=== PATIENT | male | born 1975 | race Caucasian/White ===

== ENCOUNTER 2017-06-15 03:02 | Emergency (ER) | payer SELFPAY ==
[2017-06-15 03:03] VITALS: BP 177/101; PULSE 100; RESP 16; TEMP 98.7; O2SAT 100
[2017-06-15] MEDS ORDERED: PROPARACAINE HCL 0.5% OPHT SOLN 15 ML BTL EACH EYE ONE (03:30)
--- NOTE | 2017-06-15 03:35 | PD ---
HPI Chief Complaint: Eye Problems/Injury Time Seen by Provider: 03:15 Travel History International Travel<30 days: No Contact w/Intl Traveler<30days: No Traveled to known affect area: No History of Present Illness HPI The patient is a 41 year old male who presents to the [facility] emergency department with a history of left eye pain that recurred 4 days ago. The patient reports that yesterday it seemed to be improving and then today again it worsened. He reports that it has been associated with eye redness and tearing. He reports having sensitivity to light. He denies having any changes in his vision. He reports that he did have an injury to his left eye 4-5 months ago. He reports that he was clawed in the left eye by his small dog. He reports that he was not evaluated for this. He reports that it took approximately one month for it to heal. He cannot recall if he's ever had an eye exam previously. He denies following up the primary care physician. He reports that he was last seen for a physical examination approximate 10 years ago. The patient reports that he has been diagnosed with high blood pressure in the past. He reports that he is getting blood pressure medication from a friend. The patient denies having any recent trauma to his eye or known foreign body in his eye. He reports having a headache on the left side of his head associated with this. He denies having any recent fevers cough, congestion , neck pain, chest pain, shortness of breath, abdominal pain, vomiting, diarrhea , urinary symptoms, or neurologic symptoms. PFSH Past Medical History Narrative Medical The patient's past medical history is significant for hypertension. He was started on extra BP medicine from his friend. He started back on them a week ago. He last had a physical 10 years ago. Diminished Hearing: No Hypertension: Yes Tetanus Vaccination: Unknown Past Surgical History Narrative Surgical The patient's past surgical history is significant for a basal cell skin cancer removal off of the center of his chest four years ago. Social History Alcohol Use: Yes (every other weekend) Tobacco Use: Yes (he smokes when he drinks alcohol. ) Substance Use: No Allergies-Medications (Allergen,Severity, Reaction): Coded Allergies: No Known Allergies (Unverified , 06/15/17) Reported Meds & Prescriptions Reported Meds & Active Scripts Active Lortab (Hydrocodone-Acetaminophen) 5-325 Mg Tab 1 Tab PO Q6H PRN Tobramycin Opth Drops 0.3 % Soln 1 Drop LEFT EYE Q4H Narrative Medication Atenolol, lisinopril from a friend Review of Systems General / Constitutional: No: Fever Eyes: Positive: Photophobia, Drainage, Redness, Tearing, No: Visual changes HENT: Positive: Headaches, No: Congestion, Neck Pain Cardiovascular: No: Chest Pain or Discomfort Respiratory: No: Shortness of Breath Gastrointestinal: No: Nausea, Vomiting, Diarrhea, Abdominal Pain Genitourinary: No: Dysuria Musculoskeletal: No: Pain Skin: No Rash Neurologic: Positive: Headache, No: Weakness, Focal Abnormalities, Change in Mentation, Slurred Speech, Sensory Disturbance Psychiatric: No: Depression Endocrine: No: Polydipsia Hematologic/Lymphatic: No: Easy Bruising Physical Exam Narrative General: The patient is a well-developed well-nourished male, uncomfortable appearing on arrival. Head and Neck exam: Head is normocephalic atraumatic. Eyes: EOMI, pupils are equal round and reactive to light. The patient has a funduscopic examination that is unremarkable. No evidence of AV nicking, cotton -wool spots, hemorrhage, retinal detachment. The patient however is noted to have sensitivity to light and the left eye. The patient is noted to have injection noted involving most of the white portion of the eye. The patient's right eye has mild conjunctival injection. The patient has clear tearing noted. The patient had proparacaine instilled in the eye and had resolution of his foreign body sensation. The upper and lower lid were everted and no foreign body was visualized. The patient had visual acuity in the left eye that was 20/30, 20 over 20 in the right eye and 20/20 with bilateral eyes. The patient had floors seen testing done after visual acuity which revealed a small corneal abrasion. Nose: Midline septum with pink mucous membranes. Mouth: Dentition unremarkable. No dental abscess or gingival erythema or edema noted. Moist mucus membranes. Posterior oropharynx is not erythematous. No tonsillar hypertrophy. Uvula midline. Airway patent. Neck: No palpable lymphadenopathy. No nuchal rigidity. No thyromegaly. Cardiovascular: Regular rate and rhythm without murmurs, gallops, or rubs. Lungs: Clear to auscultation bilaterally. No wheezes, rhonchi, or rales. Abdomen: Soft, without tenderness to palpation in all 4 quadrants of the abdomen. No guarding, rebound, or rigidity. Normal bowel sounds are audible. No tenderness on palpation of McBurney's point. Extremities: No clubbing, cyanosis, or edema. 2+ pulses in all 4 extremities. Back: No spinous process tenderness to palpation. No costovertebral angle tenderness to palpation. Neurologic Exam: Cranial nerves 2-12 were intact on exam. Strength is 5/5 in all 4 extremities. No sensory deficits noted. Skin Exam: No rash noted. Intact skin that is warm and dry. Data Data Last Documented VS Vital Signs Date Time Temp Pulse Resp B/P Pulse Ox O2 Delivery O2 Flow Rate FiO2 06/15/17 04:10 82 16 160/90 99 Room Air 06/15/17 03:03 98.7 Orders Proparacaine 0.5% Opth Soln (Alcaine 0.5 (06/15/17 03:30) Electrocardiogram (06/15/17 03:24) Complete Blood Count With Diff (06/15/17 03:24) Basic Metabolic Panel (Bmp) (06/15/17 03:24) Troponin I (06/15/17 03:24) Prothrombin Time / Inr (Pt) (06/15/17 03:24) Act Partial Throm Time (Ptt) (06/15/17 03:24) Urinalysis - C+S If Indicated (06/15/17 03:24) Chest, Single Ap (06/15/17 03:24) Ct Brain W/O Iv Contrast(Rout) (06/15/17 03:24) Iv Access Insert/Monitor (06/15/17 03:24) Ecg Monitoring (06/15/17 03:24) Oximetry (06/15/17 03:24) Labs Laboratory Tests Test 06/15/17 06/15/17 06/15/17 04:00 04:50 05:00 White Blood Count 12.4 TH/MM3 Red Blood Count 5.41 MIL/MM3 Hemoglobin 16.1 GM/DL Hematocrit 45.6 % Mean Corpuscular Volume 84.2 FL Mean Corpuscular Hemoglobin 29.7 PG Mean Corpuscular Hemoglobin 35.3 % Concent Red Cell Distribution Width 13.6 % Platelet Count 302 TH/MM3 Mean Platelet Volume 8.4 FL Neutrophils (%) (Auto) 54.9 % Lymphocytes (%) (Auto) 32.9 % Monocytes (%) (Auto) 7.0 % Eosinophils (%) (Auto) 4.0 % Basophils (%) (Auto) 1.2 % Neutrophils # (Auto) 6.8 TH/MM3 Lymphocytes # (Auto) 4.1 TH/MM3 Monocytes # (Auto) 0.9 TH/MM3 Eosinophils # (Auto) 0.5 TH/MM3 Basophils # (Auto) 0.1 TH/MM3 CBC Comment DIFF FINAL Differential Comment Prothrombin Time 10.4 SEC Prothromb Time International 0.9 RATIO Ratio Activated Partial 29.7 SEC Thromboplast Time Sodium Level 138 MEQ/L Potassium Level 4.6 MEQ/L Chloride Level 102 MEQ/L Carbon Dioxide Level 25.7 MEQ/L Anion Gap 10 MEQ/L Blood Urea Nitrogen 18 MG/DL Creatinine 0.81 MG/DL Estimat Glomerular Filtration 106 ML/MIN Rate Random Glucose 183 MG/DL Calcium Level 8.7 MG/DL Troponin I LESS THAN 0.02 NG/ML Urine Color YELLOW Urine Turbidity CLEAR Urine pH 5.5 Urine Specific [place] 1.028 Urine Protein 30 mg/dL Urine Glucose (UA) 300 mg/dL Urine Ketones NEG mg/dL Urine Occult Blood NEG Urine Nitrite NEG Urine Bilirubin NEG Urine Urobilinogen LESS THAN 2.0 MG/DL Urine Leukocyte Esterase NEG Urine RBC LESS THAN 1 /hpf Urine WBC 1 /hpf Urine Squamous Epithelial <1 /hpf Cells Urine Mucus FEW /lpf Microscopic Urinalysis Comment CULT NOT INDICATED MDM Medical Decision Making Medical Screen Exam Complete: Yes Emergency Medical Condition: Yes Medical Record Reviewed: Yes Interpretation(s) Last Impressions Head CT 06/15/17323 Signed Impressions: Service Date/Time: Thursday, June 15, 2017 04:13 - CONCLUSION: Negative noncontrast CT. The left globe and orbit are unremarkable in appearance. Klever Marsh MD Chest X-Ray 06/15/17323 Signed Impressions: Service Date/Time: Thursday, June 15, 2017 03:35 - CONCLUSION: No acute disease. Klever Marsh MD Differential Diagnosis Corneal abrasion, versus corneal ulcer, versus foreign body, versus acute angle closure glaucoma, versus conjunctivitis Narrative Course During the course of the patients emergency department visit, the patients history, examination, and differential diagnosis were reviewed with the patient. The patient had IV access obtained and blood work sent for analysis. The patient was placed on a case monitor with oximetry and blood pressure monitoring. The patient's initial blood pressure was 177/101. The patient's blood pressure will be reassessed once the patient has is pain control. The patient had his eye pressure checked in the right and left eye. The left eyes eye pressure was noted to be 13, the right eyes eye pressure was 27. The patient was initially provided Lortab for pain. The patient's tetanus was updated. The patients laboratory studies were reviewed and remarkable for a CBC that shows a white count 12.4, hemoglobin 16.1, platelets 302 with a normal differential, basic metabolic profile is remarkable for a glucose of 183, troponin I less than 0.02, PT 10.4, PTT 29.7, urinalysis shows 30 protein, 300 glucose Radiology studies were reviewed and remarkable for a CT scan of the brain that shows no acute abnormality, specifically the left lobe and orbit are unremarkable in appearance according to the reading radiologist. Chest x-ray shows no acute abnormality. The patient's case is discussed with the batch plant operator on-call. She did agree to see him for examination in the office today. The patient will be discharged home with a prescription for tobramycin eyedrops and Lortab. The patient is resting comfortably and feels better, is alert and in no distress. The patients results and examination findings were discussed with the patient. The repeat examination is unremarkable and benign. The history, exam, diagnostic testing, and current condition do not suggest any significant pathology to warrant further testing, continued ED treatment, admission, or surgical evaluation at this point. The vital signs have been stable. The patient does not have uncontrollable pain, intractable vomiting, or other significant symptoms. The patient's condition is stable and appropriate for discharge. The patient will pursue further outpatient evaluation with a primary care physician or other designated or consulting physician as indicated in the discharge instructions. The patient expressed understanding and was agreeable with this plan. Physician Communication Physician Communication I spoke to Dr.N. Gonsalez at 5:45 AM regarding Diagnosis Primary Impression: Redness of eye, left Additional Impression: Corneal abrasion, left Qualified Code: S05.02XA - Corneal abrasion, left, initial encounter Referrals: Ewa Gonsalez MD 1 day follow up today for examination by the eye doctor. Office opens at 8AM Patient Instructions: Corneal Abrasion (ED), General Instructions Additional Instructions: Follow-up with the batch plant operator, Dr. Ewa Gonsalez later today. Her office opens at 8 AM. Med/Other Pt SpecificInfo: Prescription(s) given Scripts Hydrocodone-Acetaminophen (Lortab)5-325 Mg Tab1 Tab PO Q6H PRN (PAIN) #12 TAB Ref 0 Prov:Kira Pepper MD 06/15/17 Tobramycin Opth Drops 0.3 % Soln1 Drop LEFT EYE Q4H #1 BOTTLE Ref 0 Prov:Kira Ppeper MD 06/15/17 Disposition: 01 DISCHARGE HOME Condition: Stable Kira Pepper MD Jun 15, 2017 03:35
--- NOTE | 2017-06-15 04:08 | RADRPT ---
EXAM DATE/TIME: 06/15/2017 03:35 [facility] COMPARISON: No previous studies available for comparison. INDICATIONS : Cough. MEDICAL HISTORY : Hypertension. SURGICAL HISTORY : None. ENCOUNTER: Initial ACUITY: 1 day PAIN SCORE: 0/10 LOCATION: Bilateral chest FINDINGS: A single view of the chest demonstrates the lungs to be symmetrically aerated without evidence of mas s, infiltrate or effusion. The cardiomediastinal contours are unremarkable. Osseous structures are intact. CONCLUSION: No acute disease. Klever Marsh MD on June 15, 2017 at 4:06 Board Certified Radiologist. This report was verified electronically.
[2017-06-15 04:10] VITALS: BP 160/90; PULSE 82; RESP 16; O2SAT 99
--- NOTE | 2017-06-15 04:23 | RADRPT ---
EXAM DATE/TIME: 06/15/2017 04:13 [facility] COMPARISON: No previous studies available for comparison. INDICATIONS : Left eye pain and redness with cephalgia. RADIATION DOSE: 44.08 CTDIvol (mGy) MEDICAL HISTORY : Hypertension. SURGICAL HISTORY : None. ENCOUNTER: Initial ACUITY: 1 day PAIN SCALE: 6/10 LOCATION: cranial TECHNIQUE: Multiple contiguous axial images were obtained of the head. Using automated exposure control and adj ustment of the mA and/or kV according to patient size, radiation dose was kept as low as reasonably a chievable to obtain optimal diagnostic quality images. DICOM format image data is available electro nically for review and comparison. FINDINGS: CEREBRUM: The ventricles are normal for age. No evidence of midline shift, mass lesion, hemorrhage or acute in farction. No extra-axial fluid collections are seen. POSTERIOR FOSSA: The cerebellum and brainstem are intact. The 4th ventricle is midline. The cerebellopontine angle i s unremarkable. EXTRACRANIAL: The visualized portion of the orbits is intact. SKULL: The calvaria is intact. No evidence of skull fracture. CONCLUSION: Negative noncontrast CT. The left globe and orbit are unremarkable in appearance. Klever Marsh MD on June 15, 2017 at 4:20 Board Certified Radiologist. This report was verified electronically.
[2017-06-15 04:29] LABS: APTT (PATIENT) 29.7 SEC (24.3-30.1); INTERNATIONAL NORMALIZED RATIO 0.9 RATIO; PROTHROMBIN TIME - PATIENT 10.4 SEC (9.8-11.6)
[2017-06-15 04:31] LABS: AUTOMATED NEUTROPHIL # 6.8 TH/MM3 (1.8-7.7); BASOPHIL # 0.1 TH/MM3 (0-0.2); BASOPHIL % 1.2 % (0.0-2.0); EOSINOPHIL # 0.5 TH/MM3 (0-0.4); HEMATOCRIT 45.6 % (39.0-51.0); HEMO FLAGS DIFF FINAL; LYMPH % 32.9 % (9.0-44.0); LYMPHOCYTE # 4.1 TH/MM3 (1.0-4.8); MEAN CELL VOLUME 84.2 FL (80.0-100.0); MEAN CORPUSCULAR HEMOGLOBIN 29.7 PG (27.0-34.0); MEAN CORPUSCULAR HGB CONC 35.3 % (32.0-36.0); NEUT % 54.9 % (16.0-70.0); PLATELET COUNT 302 TH/MM3 (150-450); RED BLOOD COUNT 5.41 MIL/MM3 (4.50-5.90); RED CELL DISTRIBUTION WIDTH 13.6 % (11.6-17.2); WHITE BLOOD COUNT 12.4 TH/MM3 (4.0-11.0)
[2017-06-15 05:25] LABS: BLOOD, URINE NEG (NEG); COMMENT (UR) CULT NOT INDICATED; CULTURE IF INDICATED CULT NOT INDICATED; GLUCOSE,URINE 300 mg/dL (NEG); KETONE, URINE NEG (NEG); MUCUS URINE FEW /lpf (OCC); NITRITE,URINE NEG (NEG); PH, URINE 5.5 (5.0-8.5); SQUAMOUS EPITHELIAL CELL URINE <1 /hpf (0-5); URINE COLOR YELLOW (YELLW/STRAW)
[2017-06-15 05:28] LABS: ANION GAP 10 MEQ/L (5-15); BICARBONATE 25.7 MEQ/L (21.0-32.0); BLOOD UREA NITROGEN 18 MG/DL (7-18); CHLORIDE 102 MEQ/L (98-107); GLOMERULAR FILTRATION RATE 106 ML/MIN (>89); SODIUM (NA) 138 MEQ/L (136-145)
[2017-06-15 05:29] LABS: POTASSIUM 4.6 MEQ/L (3.5-5.1)
[2017-06-15] MEDS ORDERED: AK-T0.3S LEFT EYE (05:47)
[2017-06-15] MEDS ORDERED: HYDR-3533 PO (05:47)
[2017-06-15] MEDS ORDERED: ACETAMINOPHEN/HYDROcodone 325 MG/5 MG TAB PO ONE (06:00)
[2017-06-15] MEDS ORDERED: DIPHTH/TETANUS/ACEL PERTUSSIS (BOOSTER) 0.5 ML VIAL/PFS IM ONE (06:00)
[2017-06-15 06:46] VITALS: BP 158/88
--- NOTE | 2017-06-15 12:20 | EKG ---
Date Performed: 06/15/2017 Time Performed: 03:52:18 PTAGE: 41 years EKG: Sinus rhythm NONSPECIFIC T-WAVE ABNORMALITY BORDERLINE ECG NO PREVIOUS TRACING DOCTOR: Estevan Mueller Interpretating Date/Time 06/15/2017 12:17:47
[2017-06-17] MEDS ORDERED: ATEN25TA PO (14:21)
[2017-06-17] MEDS ORDERED: LISI-519 PO (14:21)
== END 2017-06-15 06:48 | disposition home or self-care (01) ==
LOC: NEPC 03:02
DX: H57.8 Other specified disorders of eye and adnexa (principal); S05.02XA Injury of conjunctiva and corneal abrasion without foreign body, left eye, initial encounter; R51 Headache; I10 Essential (primary) hypertension; R94.31 Abnormal electrocardiogram [ECG] [EKG]; Z72.0 Tobacco use; Z23 Encounter for immunization; Z85.828 Personal history of other malignant neoplasm of skin; X58.XXXA Exposure to other specified factors, initial encounter
CPT/HCPCS: 70450; 71010; 80048; 81001; 84484; 85025; 85610; 85730; 90471; 90715; 93005

== ENCOUNTER 2017-07-21 04:55 | Emergency (ER) | payer OTHER ==
[~2017-07-21] VITALS: Ht 177.8 cm; Wt 120.0 kg
[~2017-07-21 04:55] MED LIST: AK-T0.3S LEFT EYE; ATEN25TA PO; HYDR-3533 PO; LISI-519 PO
[2017-07-21 04:57] VITALS: BP 150/101; PULSE 78; RESP 16; TEMP 98; O2SAT 97
[2017-07-21] MEDS ORDERED: MOBI15TA PO (05:25)
[2017-07-21] MEDS ORDERED: ROBA750T PO (05:25)
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
== END 2017-07-21 06:17 | disposition home or self-care (01) ==
LOC: NEPC 04:55
DX: S16.1XXA Strain of muscle, fascia and tendon at neck level, initial encounter (principal); S39.012A Strain of muscle, fascia and tendon of lower back, initial encounter; S20.212A Contusion of left front wall of thorax, initial encounter; S60.222A Contusion of left hand, initial encounter; I10 Essential (primary) hypertension; V43.62XA Car passenger injured in collision with other type car in traffic accident, initial encounter; Z79.899 Other long term (current) drug therapy; Z72.0 Tobacco use
CPT/HCPCS: 71010; 72040; 72100; 73130; 99284